=== PATIENT | male | born 1960 ===

== ENCOUNTER 2019-11-20 07:56 | Day surgery (SDC) | payer MEDICARE, OTHER ==
[~2019-11-20 07:56] MED LIST: Sodium Chloride 0.9% 10 ML SDV IV PRN; Sodium Chloride 0.9% 10 ML Syringe FLUSH PRN; Sodium Chloride 0.9% 2.5 ML Syringe FLUSH PRN; ceFAZolin 2 GM in Premix Bag 1 BAG IV ONE
--- NOTE | 2019-11-20 08:36 | PCM.PREANE ---
Preanesthetic Assessment - Anesthesia/Transfusion/Family Hx Anesthesia History: Prior Anesthesia Without Reaction Family History of Anesthesia Reaction: No Transfusion History: No Prior Transfusion(s) Intubation History: Unknown - Review of Systems General: No Symptoms Pulmonary: No Symptoms Cardiovascular: No Symptoms Gastrointestinal: No Symptoms Neurological: No Symptoms Other: Reports: None - Physical Assessment Height: 5 ft 6 in Weight: 126.099 kg ASA Class: 3 Mental Status: Alert & Oriented x3 Airway Class: Mallampati = 2 Dentition: Reports: Normal Dentition Thyro-Mental Finger Breadths: 2 (wide short neck) Mouth Opening Finger Breadths: 3 ROM/Head Extension: Limited/Partial Lungs: Clear to Auscultation, Normal Respiratory Effort Cardiovascular: Regular Rate, Regular Rhythm - Allergies Allergies/Adverse Reactions: Allergies Allergy/AdvReac Type Severity Reaction Status Date / Time Iodinated Contrast Media Allergy Rash Verified 11/15/19 10:42 [Iodinated Contrast Media - IV Dye] - Blood Blood Available: No - Anesthesia Plan Pre-Op Medication Ordered: None - Acknowledgements Anesthesia Type Planned: Spinal (general anesthesia back-up plan) Pt an Appropriate Candidate for the Planned Anesthesia: Yes Alternatives and Risks of Anesthesia Discussed w Pt/Guardian: Yes Pt/Guardian Understands and Agrees with Anesthesia Plan: Yes PreAnesthesia Questionnaire HEENT History: Other HEENT History: wears glasses Cardiovascular History: Reports: Hypertension Respiratory History: Reports: Sleep Apnea Other Respiratory History: uses CPAP nightly Gastrointestinal History: Reports: GERD Genitourinary History: Reports: None Musculoskeletal History: Reports: Fracture, Neck Pain, Chronic, Other (See Below ) Other Musculoskeletal History: dislocated shoulder 11/29/15, hx of fx right wrist Neurological History: Reports: Concussion Other Neuro History: "bulging discs" in neck Psychiatric History: Reports: None Endocrine/Metabolic History: Reports: Obesity/BMI 30+ (BMI 44.9) Hematologic History: Reports: None Immunologic History: Reports: None Oncologic (Cancer) History: Reports: Other (See Below) 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 Dermatologic History: Reports: None - Past Surgical History Head Surgeries/Procedures: Reports: None HEENT Surgical History: Reports: Naso-Sinus Surgery, Tonsillectomy Cardiovascular Surgical History: Reports: None Respiratory Surgical History: Reports: None GI Surgical History: Reports: None Other Female Surgeries/Procedures: excision of mass left spermatic cord, left orchiectomy Male Surgical History: Reports: Other (See Below) Endocrine Surgical History: Reports: None Neurological Surgical History: Reports: None Musculoskeletal Surgical History: Reports: Other (See Below) Other Musculoskeletal Surgeries/Procedures:: closed reduction of fx right wrist Oncologic Surgical History: Reports: Lumpectomy - SUBSTANCE USE Smoking Status *Q: Former Smoker Tobacco Use Within Last Twelve Months: No Recreational Drug Use History: No - HOME MEDS Home Medications: Home Meds Lisinopril 10 mg PO DAILY 12/05/15 [History] Omeprazole 20 mg PO DAILY 12/05/15 [History] Cyclobenzaprine [Flexeril] 10 mg PO ASDIRECTED PRN 11/15/19 [History] Gabapentin [Neurontin] 200 mg PO BEDTIME 11/15/19 [History] Meloxicam 7.5 mg PO DAILY 11/15/19 [History] - CURRENT (IN HOUSE) MEDS Current Meds: Current Medications Sodium Chloride (Saline Flush) 10 ml FLUSH ASDIRECTED PRN PRN Reason: Keep Vein Open Sodium Chloride (Saline Flush) 2.5 ml FLUSH ASDIRECTED PRN PRN Reason: Keep Vein Open Sodium Chloride (Normal Saline) 10 ml IV ASDIRECTED PRN PRN Reason: IV Use Discontinued Medications Cefazolin Sodium/Dextrose 2 gm (/ Premix) 50 mls @ 100 mls/hr IV ONETIME ONE Stop: 11/20/19 00:30
[2019-11-20] MEDS ORDERED: Propofol 200 MG/20 ML SDV ONE (09:38)
[2019-11-20] MEDS ORDERED: Midazolam 1 MG/ML 2 ML SDV ONE (09:38)
[2019-11-20] MEDS ORDERED: fentaNYL 250 MCG/5 ML SDV ONE (09:38)
[2019-11-20] MEDS ORDERED: ceFAZolin/Dextrose,Iso-Osmotic 2 GM/50 ML Duplex Bag IV ONE (09:40)
[2019-11-20] MEDS ORDERED: ePHEDrine 50 MG/ML SDV ONE (09:59)
[2019-11-20] MEDS ORDERED: Sodium Chloride 0.9% 20 ML ONE (09:59)
[2019-11-20] MEDS ORDERED: Lactated Ringers 1,000 ML IV SCH (10:00)
[2019-11-20] MEDS ORDERED: Bupivacaine 0.5% 10 ML SDV ONE (10:02)
[2019-11-20] MEDS ORDERED: Cyclobenzaprine 10 MG Tab PO PRN (12:00)
--- NOTE | 2019-11-20 13:35 | PCM.POSTAN ---
POST ANESTHESIA ASSESSMENT - MENTAL STATUS Mental Status: Alert, Oriented - VITAL SIGNS Vital Signs: Last Vital Signs Temp 35.9 C L 11/20/19 12:01 Pulse 67 11/20/19 12:40 Resp 16 11/20/19 12:40 BP 100/63 11/20/19 12:40 Pulse Ox 97 11/20/19 12:40 - RESPIRATORY Respiratory Status: Respiratory Rate WNL, Airway Patent, O2 Saturation Stable - CARDIOVASCULAR CV Status: Pulse Rate WNL, Blood Pressure Stable - GASTROINTESTINAL GI Status: No Symptoms - PAIN Pain Score: 2 - POST OP HYDRATION Hydration Status: Adequate & Stable - OBSERVATIONS Free Text/Narrative:: No anesthesia problems.
--- NOTE | 2019-11-20 15:16 | PCM48HPAN ---
Post Anesthesia Note - EVALUATION WITHIN 48HRS OF ANESTHETIC Vital Signs in Normal Range: Yes Patient Participated in Evaluation: Yes Respiratory Function Stable: Yes Airway Patent: Yes Cardiovascular Function Stable: Yes Hydration Status Stable: Yes Pain Control Satisfactory: Yes Nausea and Vomiting Control Satisfactory: Yes Mental Status Recovered: Yes Vital Signs: Last Vital Signs Temp 35.9 C L 11/20/19 12:01 Pulse 67 11/20/19 12:40 Resp 16 11/20/19 12:40 BP 100/63 11/20/19 12:40 Pulse Ox 97 11/20/19 12:40 - COMMENTS/OBSERVATIONS Free Text/Narrative:: No anesthesia problems
[2019-11-20 16:11] VITALS: BP 104/71; PULSE 63
--- NOTE | 2019-11-20 16:16 | OR ---
SURGEON: Shanell Chiu M.D. 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 OPERATION: Excision of a 12 cm mass. DESCRIPTION OF PROCEDURE: The patient was given spinal anesthesia. He was in supine position. External genital area was prepped and draped in sterile drapes. A transverse incision was made on the left scrotal sac. The mass was carefully dissected all the way up into the inguinal canal where the cord structures were transected and suture ligated with 0 silk x4. The cord was suture ligated in 4 bites. All bleeding points were fulgurated. A half-inch [place] drain was left in and brought to the outside through a separate stab wound incision. The wound was then closed using interrupted 3-0 chromic full-thickness sutures. The patient tolerated the procedure well and was moved to recovery room in good condition. PLAN: I will see him in 2 days to take the drain out. He will be sent home on margarita and [place]. ROHAN / KYLIE /[id number]
[2019-11-20] MEDS ORDERED: Gabapentin 100 MG Cap PO SCH (21:00)
[2019-11-21] MEDS ORDERED: Omeprazole 20 MG Cap.CR PO SCH (09:00)
[2019-11-21] MEDS ORDERED: Lisinopril 10 MG Tab PO SCH (09:00)
[2019-11-21] MEDS ORDERED: Meloxicam 7.5 MG Tab PO SCH (09:00)
== END 2019-11-20 15:30 | disposition home or self-care (01) ==
LOC: MW.SDS 07:56
PROVIDERS: ATTEND Urology
DX: C63.2 Malignant neoplasm of scrotum (principal); Z91.041 Radiographic dye allergy status; Z87.891 Personal history of nicotine dependence; Z79.899 Other long term (current) drug therapy; Z85.47 Personal history of malignant neoplasm of testis; Z90.79 Acquired absence of other genital organ(s)
CPT/HCPCS: 55899; 88307; J0690; J2250; J2704; J3010; J7120; 00920; J3490